=== PATIENT | male | born 1965 | race Caucasian/White ===

== ENCOUNTER 2023-11-16 12:55 | Outpatient (CLI) | payer MEDICARE, SELFPAY ==
--- NOTE | 2023-11-16 13:00 | ECG_ITS ---
Measurements Intervals [place] Rate: 99 P: 17 CO: 145 QRS: -5 QRSD: 97 T: 51 QT: 349 QTc: 449 Interpretive Statements SINUS RHYTHM INCOMPLETE RIGHT BUNDLE BRANCH BLOCK BORDERLINE ST-T WAVE ABNORMALITY- DIFFUSE LEADS BASELINE ARTIFACT- I, II, III, AVR, AVL, AVF, V1-V6 BORDERLINE ECG NO PREVIOUS ECG AVAILABLE FOR COMPARISON Electronically Signed On 11-16-2023 13:49:17 CDT by Andrew Huang D.O.
[2023-11-16 13:24] LABS: Appearance Urine Clear (Clear); Bilirubin Urine Negative (Negative); Blood Urine Negative (Negative); Color Urine Yellow (Yellow); Glucose Urine UA Negative (Negative); Ketones Urine Negative (Negative); Leukocyte Esterase Ur Negative LEU/UL (Negative); Nitrate Urine Negative (Negative); Protein Urine Negative (Negative); Specific Grav Ur 1.013 (1.001-1.035); Urobilinogen Urine 0.2 mg/dL (<2.0); pH Urine 5.5 (5.0-9.0)
[2023-11-16 13:29] LABS: Add Urine Microscopic? NO
[2023-11-16 13:34] LABS: INR 0.9; Prothrombin Time 12.6 Seconds (11.1-14.7)
== END 2023-11-16 12:56 | disposition home or self-care (01) ==
LOC: ANHSURGERY 12:59
PROVIDERS: PCP Physician Assistant Medical; Visit Provider Neurological Surgery
DX: M47.816 Spondylosis without myelopathy or radiculopathy, lumbar region (principal); E11.9 Type 2 diabetes mellitus without complications; E78.5 Hyperlipidemia, unspecified; I10 Essential (primary) hypertension; Z87.891 Personal history of nicotine dependence; Z01.818 Encounter for other preprocedural examination
CPT/HCPCS: 36415; 85610; 85730; 86850; 86900; 86901; 93005

== ENCOUNTER 2023-11-20 01:01 | Day surgery (SDC) | payer MEDICARE, SELFPAY ==
[2023-11-13 15:20] VITALS: BMI 28.3
--- NOTE | 2023-11-13 15:28 | PC.NURSE ---
Report to the Outpatient Waiting Room, entrance under the green pavilion located off [facility], at time 6:00 on date 11/20/23. Planned Procedure Time: 8:00. Time changes happen often and if your time is changed the preop area will call you the afternoon before. - You and your visitor will be asked to self-screen and do not enter if you have any COVID symptoms. - A mask is optional within the hospital at this time. Patients may have clear liquids (water, carbonated beverages, clear teas, apple juice) until 3 hours prior to surgery (5:00) with a maximum of 20 ounces. - No food from midnight until time of surgery Take the following medications with a SIP of water the morning of surgery: SUBOXONE, DULOXETINE, TIZANIDINE IF NEEDED DO NOT STOP ANY OF YOUR OTHER PRESCRIPTION MEDICATIONS PRIOR TO SURGERY ?EXCEPT THE FOLLOWING Medications to discontinue per physician: VITAMINS (B12 AND D3) Date to take last dose: 11/16/23 LAST DOSE OF ASPIRIN 11/12/[address] BRUNSON REGARDING MELOXICAM Please no make-up, nail mauritian, hairspray, perfume, deodorant, or body powder the day of surgery. No jewelry (including any body piercings) or valuables the day of surgery, leave them at home. Please take a shower or bath the night before, or the morning of, surgery with an antibacterial soap. Wear comfortable, loose fitting clothing. - Jewelry must be removed prior to entering the operating room. Rings and piercings that are not removed may be cut off. - The hospital will not accept responsibility for valuables. - Please leave all valuables, including medications, at home the day of surgery. If you are going home after surgery, a licensed national dedicated truck driver must drive you home. - NO public transportation without another adult if you receive anesthesia. - We recommend that an adult stay with you for 24 hours following discharge. - We also recommend that you do not drive, make important decision, drink alcoholic beverages, or take any drugs that were not prescribed by your health care provider for at least 24 hours after your discharge time. Follow any additional instructions given to you from your surgeon. If you or anyone in your household have experienced Covid symptoms in the past week, please notify your surgeon or the nurse liaison at the phone number below for possible testing. Telephone instructions given to PT & - INDIO AND YURI and asked if any additional questions and then verbalized understanding. Patient advised to call surgeon office or pre surgery nurse liaison [phone] if any additional questions.
[2023-11-20] VITALS (20 sets, daily range): BP systolic 104–146; BP diastolic 60–92; PULSE 91–116; RESP 11–18; TEMP 36–37.2; O2SAT 92–99
--- NOTE | ~2023-11-20 | XR_ITS ---
EXAMINATION: XR fluoroscopy no charge DATE: 11/20/2023 10:26 INDICATION: Lumbar fusion. TECHNIQUE: 2 intraoperative fluoroscopic views of the lumbar spine were obtained. I was not present. Fluoroscopy exposure time was 3 seconds. COMPARISON: Lumbar spine radiographs 11/27/2016 FINDINGS: There are changes of anterior and posterior fusion procedures at L4-L5 with interbody devic e and pedicle screws. IMPRESSION: 1. Anterior and posterior fusion procedures at L4-L5. Reviewed, dictated and finalized at location E.
[2023-11-20] MEDS: LACTATED RINGERS 1,000 ML 125 ML IV CONT (07:20)
[2023-11-20 07:22] LABS: Glucose Point of Care 164 mg/dl (65-105)
--- NOTE | 2023-11-20 07:57 | WPDANESEPPF ---
Anes - Initial Pre Proc Eval Procedure: Operation Date: 11/20/23 08:00 Proposed Procedures p L4-5 Posterior Lumbar Interbody Fusion - Faisal Nam MD Date/Time: 11/20/23 07:57 Surgeon: Faisal Nam MD Pre Op Diagnosis: L4-5 spondylosis Patient Data Age: 58 Gender: M Height: 1.63 m Weight: 75.9 kg Last Vital Signs Temp 36.8 C 11/20/23 06:30 Pulse 91 11/20/23 06:30 Resp 16 11/20/23 06:30 BP 123/75 11/20/23 06:30 Pulse Ox 98 11/20/23 06:30 O2 Del Method Room Air 11/20/23 06:30 Allergies Allergy/AdvReac Type Severity Reaction Status Date / Time No Known Allergies Allergy Verified 11/20/23 06:33 Home Medications Medication Instructions Recorded Confirmed Type blood sugar diagnostic #100 ea 06/18/23 10/26/23 Rx meloxicam 7.5 mg tablet See Rx Instructions .Route 08/14/23 11/20/23 Rx .COMPLEX #90 tabs tizanidine 4 mg tablet See Rx Instructions .Route 10/09/23 11/20/23 Rx .COMPLEX #90 tabs metformin 500 mg tablet,extended See Rx Instructions .Route 10/22/23 11/20/23 Rx release 24 hr .COMPLEX #360 tabs atorvastatin 20 mg tablet 20 mg PO QHS #90 tabs 10/26/23 11/20/23 Rx buprenorphine 2 mg-naloxone 0.5 mg 1 tablet sublingual DAILY 10/26/23 11/20/23 History sublingual tablet duloxetine 30 mg capsule,delayed See Rx Instructions .Route 10/26/23 11/20/23 Rx release .COMPLEX #90 caps duloxetine 60 mg capsule,delayed See Rx Instructions .Route 10/26/23 11/20/23 Rx release .COMPLEX #90 caps trazodone 50 mg tablet 50 mg PO QHS PRN Insomnia 10/26/23 11/20/23 History amlodipine 5 mg-benazepril 10 mg See Rx Instructions .Route 11/08/23 11/20/23 Rx capsule .COMPLEX #90 caps aspirin 81 mg capsule 81 mg PO DAILY 11/13/23 11/20/23 History cholecalciferol (vitamin D3) 25 25 mcg PO HS 11/13/23 11/20/23 History mcg (1,000 unit) chewable tablet (Vitamin D3) cyanocobalamin (vitamin B-12) 500 500 mcg PO DAILY 11/13/23 11/20/23 History mcg tablet Laboratory Tests 11/20/23 07:12 POC Capillary Glucose 164 H mg/dl (65-105) Patient hx anesthesia problems: none Family hx anesthesia problems: none Results Review: All pre-operative results and documents have been reviewed as part of the pre-operative evaluation. [facility] Past Medical History Medical History Chronic bilateral low back pain without sciatica Chronic low back pain Diabetes Dyslipidemia HTN (hypertension), benign Lumbar radiculopathy, chronic Other chronic pain Spinal stenosis Spondylosis of cervical region without myelopathy or radiculopathy Vitamin D deficiency Family History Family History Sibling Hypertension Father Family history of Parkinson's disease, Onset Age: 86 Social History Social History Smoking packs per day: 2.5 Smoking cigarettes per day: 50.0 Years smoked: 35 Smoking pack-years: 87.50 Smoking status: Former smoker Tobacco type: cigarettes Second hand tobacco smoke exposure: No Smoking end date: 06/26/23 Alcohol intake: current Alcohol use details: 1/MONTH Substance use: never Substance use type: does not use Do You Feel Safe in your Home?: Yes Lack of Transportation: No Lack of Food: Never True Current Housing: I Have Housing Concerned About Future Housing: No Difficulty Paying Gas/Electric Bills: No Difficulty Paying for Meds: No Currently Unemployed: No Education: High School Diploma/GED Difficulty w/ Childcare or Family Care: No Living arrangements: with family Occupation/Education: retired Gender identity (if verbalized by the patient): Male Spiritual care concerns: No Anes - Eval Final PreProcedure Day of Procedure 11/20/23 07:57 Patient weight: overweight Heart: regular rate and rhythm Lungs: decreased
--- NOTE | 2023-11-20 08:13 | PM.IMHP ---
H&P: HPI History of Present Illness Date/Time: 11/20/23 08:13 Chief Complaint: Back and leg pain Narrative: Marcio Gomez is here today in follow-up of his L4-5 spondylosis and stenosis.? We had previously discussed L4-5 posterior lumbar interbody fusion.? He is a 58-year-old gentleman here today in follow up with a new MRI of his lumbar spine. He has pain in the middle of his back radiating slightly to the right that does not radiate down into either lower extremity or anywhere else. The discomfort in his back is there all the time but waxes and wanes in intensity at random. He has increased pain if he stands and walks that improves but does not completely go away when he sits down and rests. He does not notice any specific or general muscle group weakness in either lower extremities but does notice mild intermittent numbness and tingling down his bilateral legs. He has seen a resin painter in the past and has tried injections but states that the last injection he had was about 9 years ago. He states that the injections he has had in the past may have helped for a few days, maybe 4 days at most, but none of these provided him with any permanent relief/benefit. He has also tried physical therapy in the past without permanent benefit. He is limited and distracted daily by the discomfort in his back to the extent that he wants to have surgery at this point in time. He is not having any new bowel or bladder difficulty or other new constitutional problems at this time. He has been able to quit smoking and is interested in proceeding with the aforementioned operation as he continues to have pain that is limiting in distracting for him on a daily basis. Review of Systems Review of Systems: Review of Systems Const Details: Const All systems reviewed & are unremarkable except as noted in HPI and below Denies chills, Denies fever(s), Denies weakness, Denies weight gain and Denies weight loss Eyes Denies change in vision and Denies diplopia ENT Denies neck pain and Denies disequilibrium Card Denies chest pain and Denies dyspnea Resp Denies cough and Denies dyspnea GI Denies abdominal pain, Denies change in bowel habits, Denies fecal incontinence and Denies vomiting Denies hematuria, Denies oliguria, Denies difficulty urinating, Denies dysuria, Denies urinary frequency, Denies urinary hesitancy, Denies urinary incontinence and Denies urinary urgency Musc Reports as per HPI, Reports back pain, Denies muscle weakness, Denies neck pain, Reports numbness and Denies stiffness Skin/ Breast Reports system reviewed and no additional complaints, except as documented Neuro Reports as per HPI, Denies burning sensations, Denies focal weakness, Reports numbness, Denies Other visual disturbances, Reports radicular pain, Reports paresthesias, Denies disequilibrium and Denies weakness Psych Reports no additional complaints, Denies depression and Denies hopelessness Endo Reports no additional complaints and Denies polyuria Kleber/ Lymph Reports no additional complaints Aller/ Immun Reports no additional complaints PMFSH Past Medical History Medical History Chronic bilateral low back pain without sciatica Chronic low back pain Diabetes Dyslipidemia HTN (hypertension), benign Lumbar radiculopathy, chronic Other chronic pain Spinal stenosis Spondylosis of cervical region without myelopathy or radiculopathy Vitamin D deficiency Family History Family History Sibling Hypertension Father Family history of Parkinson's disease, Onset Age: 86 Social History Social History Smoking packs per day: 2.5 Smoking cigarettes per day: 50.0 Years smoked: 35 Smoking pack-years: 87.50 Smoking status: Former smoker Tobacco type: cigarettes Second hand tobacco smo
--- NOTE | 2023-11-20 08:16 | WPDHPUPDATE1 ---
History and Physical Update Update Date/Time: 11/20/23 08:16 History and Physical has been reviewed, including an updated exam of the patient. There are NO changes in the patient's condition. Risks, benefits, and alternatives have been discussed and questions answered. Patient agrees to proceed with procedure.
[2023-11-20] MEDS: ceFAZolin 2 GM/D5W 50 ML 2 GM/50 ML BAG IVPB (08:17)
[2023-11-20] MEDS: LIDO 1%/EPINEPHRINE 1:100,000 50 ML VIAL 10 ML INFILTRATE (09:05)
--- NOTE | 2023-11-20 10:47 | W.PM.PROC2 ---
Procedure Note - Detailed Date of Procedure 11/20/23 Pre-op Diagnosis L4-5 spondylosis Post-op Diagnosis Same Procedure Performed L4-5 complete laminectomy bilateral facetectomy, L4-5 complete diskectomy and interbody arthrodesis utilizing titanium interbody device and local autograft, L4-5 pedicle screw instrumentation Surgeon Faisal Nam MD Anesthesia General Description of Procedure patient was brought to the operating room in the supine position, was sedated, intubated placed under general anesthesia in routine fashion. He was then turned into the prone position on Antelmo frame. The operation was backed examined, marked for incision, prepped and draped in routine sterile fashion. Incision was marked over the L4-5 spinous processes in the midline. This area was injected with 0.5% lidocaine with [id number] epinephrine. Intravenous antibiotics given prior to incision. Incision was made with a 10 blade scalpel down to the lumbodorsal fascia. A subperiosteal dissection of the muscle soft tissue within spinous process and lamina was performed with a subperiosteal elevator and Bovie cautery. A verifying x-rays obtained to verify the level of operation. The L4 spinous process was removed with a Inna rongeur. Kerrison punches, curved curette and Yayoell rongeur were used to remove the lamina in the midline at the soft contents of the canal were encountered. A Midas David drill was used to resect the pars bilaterally. The inferior articular process and facet of L4 could then be removed bilaterally. These +spinous process were stripped free of soft tissue and morselized for later use as interbody autograft. Kerrison punches and curved curettes were used to define plane with the dura and removed bone and ligament flush with the pedicle and through the foramina widely decompressing the exiting nerve roots. With the thecal sac retracted and protected the disc spaces under bilaterally using 11 blade scalpel. Script is a very sizes, curettes appears configurations, pituitary rongeur and a rasp were used to remove as much cartilaginous endplate and disc material as possible down to bleeding cortical flat surfaces on the closing bones. The disc space was incised and a 10 mm interbody devices were chosen and filled with local autograft bone. The disc space was likewise filled with local autograft bone medially and anteriorly. The interbody devices were then placed with 2-3 mm countersink within the disc space bilaterally. Pedicle screw instrumentation was then performed by observing and palpating the pedicle a hole was made and severe articular process above the pedicle using Midas David drill. The pedicle was then cannulated with pedicle probe, checked for cannulated with a ball probe, tapped with a 5.5 mm tap and a 6.5 x 50 mm screw was placed in each pedicle on each side. 35 mm rods were placed in screw heads her side and secured in position using the caps that purpose. These were definitively time with the torque and anti torque device. A verifying x-rays obtained to verify the position of the instrumentation which was confirmed. The wound was copiously irrigated with bacitracin irrigation all bleeding stopped with bipolar and Bovie cautery and Gelfoam thrombin powder. in a medium Hemovac drain was left in the subfascial position. After the inferior right of the incision. The wound was then closed in layered fashion with 2-0 Vicryl interrupted sutures in the lumbodorsal fascia and Antonio's layer. 3-0 Vicryl buried interrupted sutures were placed in the dermis and skin was closed with a running 4-0 Monocryl subcuticular stitch and dressed with Dermabond. The patient was allowed to come out from general anesthesia in the operating room was taken to recovery room stable condition. There were no immediate complications of this operation. All counts were reported correct in the case. Blood loss was 150 cc. The patient was neurologically at
--- NOTE | 2023-11-20 10:51 | SUR.OPER ---
100mL clear yellow urine drained from catheter intraop
[2023-11-20] MEDS: LACTATED RINGERS 1,000 ML 30 ML IV CONT (10:55)
[2023-11-20 11:04] LABS: Glucose Point of Care 229 mg/dl (65-105)
[2023-11-20] MEDS: fentaNYL CITRATE INJ (*CRX) 100 MCG/2 ML VIAL 25 MCG IV PUSH ×8 (11:20→11:42)
[2023-11-20] MEDS: HYDROmorphone HCL INJ (*CRX) 1 MG/ML SYR IV PUSH ×9 (12:02→23:54)
--- NOTE | 2023-11-20 14:18 | ADMGEN ---
This patient, Marcio Gomez, was admitted to [facility] Surg Room 309-01. Patient/family oriented to hospital policies and general routines including ID bracelet, bed and alarms, visiting hours, pain management, procedures, bathroom and other care routines, personal items, smoking policy, room service/diet, and visiting hours. Information on how to activate the Rapid Response Team has been discussed. Patient/Family are encouraged to report perceived risks to care and to ask questions if they do not understand what they are told or what they should do.
[2023-11-20] MEDS: KCL 20 MEQ/D5/0.45% SOD CHL 1,000 ML 100 ML IV CONT (16:11)
[2023-11-20] MEDS: oxyCODONE/ACETAMINOPHEN (*CRX) 10-325 MG TABLET 1 TAB PO (16:12)
[2023-11-20] MEDS: ceFAZolin 1 GM/NS 50 ML 1 GM/50 ML BAG IVPB ×2 (16:12→20:59)
[2023-11-20] MEDS: metFORMIN HCL XR 500 MG TAB.SR.24H 1000 MG BY MOUTH (16:20)
[2023-11-20 16:33] LABS: Glucose Point of Care 240 mg/dl (65-105)
[2023-11-20] MEDS: diazePAM (*CRX) 5 MG TABLET PO (18:29)
[2023-11-20 20:45] LABS: Glucose Point of Care 398 mg/dl (65-105)
[2023-11-20] MEDS: DOCUSATE SODIUM 100 MG CAPSULE PO (20:55)
[2023-11-20] MEDS: ATORVASTATIN 20 MG TABLET PO (20:55)
[2023-11-20] MEDS: traZODone HCL 50 MG TABLET PO (20:55)
[2023-11-20] MEDS: CHOLECALCIFEROL 1,000 UNITS TABLET 1000 UNITS PO (20:56)
[2023-11-20] MEDS: INSULIN ASPART (*BKC) 100 UNITS/ML SUB-Q (20:56)
[2023-11-21] MEDS: HYDROmorphone HCL INJ (*CRX) 1 MG/ML SYR IV PUSH ×3 (02:47→09:00)
[2023-11-21 04:50] VITALS: BP 161/91; PULSE 86; RESP 16; TEMP 36.3; O2SAT 94
[2023-11-21] MEDS: ceFAZolin 1 GM/NS 50 ML 1 GM/50 ML BAG IVPB ×2 (05:00→14:16)
[2023-11-21] MEDS: oxyCODONE/ACETAMINOPHEN (*CRX) 10-325 MG TABLET 1 TAB PO ×2 (06:52→12:01)
[2023-11-21 08:02] LABS: Glucose Point of Care 195 mg/dl (65-105)
[2023-11-21 08:49] LABS: Hematocrit 38.5 % (42.0-52.0); Hemoglobin 12.5 g/dL (14.0-18.0)
[2023-11-21 09:02] VITALS: BP 167/97; PULSE 83; RESP 20; TEMP 36.2; O2SAT 99
[2023-11-21] MEDS: metFORMIN HCL XR 500 MG TAB.SR.24H 1000 MG BY MOUTH ×2 (09:02→16:39)
[2023-11-21] MEDS: DOCUSATE SODIUM 100 MG CAPSULE PO (09:02)
[2023-11-21] MEDS: amLODIPine BESYLATE 5 MG TABLET PO (09:02)
[2023-11-21] MEDS: CYANOCOBALAMIN 500 MCG TABLET PO (09:02)
[2023-11-21] MEDS: lisinopriL 10 MG TABLET PO (09:02)
[2023-11-21] MEDS: DULoxetine HCL 30 MG CAPSULE.DR BY MOUTH (09:02)
[2023-11-21] MEDS: DULoxetine HCL 60 MG CAPSULE.DR BY MOUTH (09:02)
[2023-11-21 11:39] LABS: Glucose Point of Care 207 mg/dl (65-105)
--- NOTE | 2023-11-21 12:21 | WPDNEUROSGPN ---
Progress Note: A&P Assessment and Plan (1) Status post lumbar spinal arthrodesis: Code(s): Z98.1 - Arthrodesis status Status: Acute Plan -Remove catheter -Monitor HV output this afternoon -Stop IV dilaudid as he would like to go home today if he can -Increase oxycodone to 15mg q4 hours -Possible discharge this evening if drain output remains <100cc this shift and pain is controlled without IV medications Subjective Date/time seen: 11/21/23 12:21 Interval history: Some difficulty with pain control; patient is wanting frequent dilaudid. Pain is mostly in the lower back. He denies any pain or paresthesias in the legs which is a big improvement compared to before surgery. He ambulated with therapy. catheter is still in Review of Systems Review of Systems: All systems reviewed & are unremarkable except as noted in HPI and below Exam Narrative: AOx4 Incision c/d/i Full strength in lower extremities Sensation intact to light touch HV 310cc out since surgery, only 35cc since 7:30 this AM Objective Data Vital Signs Vital Signs: Vital Signs - 24 hr 11/20/23 12:25 11/20/23 12:40 11/20/23 12:54 Temperature Pulse Rate 100 98 97 Respiratory Rate 16 15 15 Blood Pressure 115/67 110/61 106/72 Pulse Oximetry 97 95 93 Oxygen Delivery Nasal Cannula Nasal Cannula Nasal Cannula Oxygen Flow Rate 2 2 2 11/20/23 13:09 11/20/23 13:26 11/20/23 13:35 Temperature Pulse Rate 104 H 103 H 100 Respiratory Rate 14 12 11 L Blood Pressure 138/90 131/84 108/61 Pulse Oximetry 98 98 96 Oxygen Delivery Nasal Cannula Nasal Cannula Nasal Cannula Oxygen Flow Rate 2 2 2 11/20/23 13:50 11/20/23 15:39 11/20/23 16:02 Temperature 97.3 F L Pulse Rate 100 103 H Respiratory Rate 15 18 Blood Pressure 121/81 140/60 Pulse Oximetry 96 99 Oxygen Delivery Nasal Cannula Room Air Oxygen Flow Rate 2 11/20/23 20:23 11/20/23 20:00 11/20/23 23:54 Temperature 97.6 F 98.3 F Pulse Rate 107 H 96 Respiratory Rate 16 16 Blood Pressure 134/72 137/92 H Pulse Oximetry 98 96 Oxygen Delivery Room Air Oxygen Flow Rate 11/21/23 04:50 11/21/23 09:02 Temperature 97.4 F L 97.1 F L Pulse Rate 86 83 Respiratory Rate 16 20 Blood Pressure 161/91 H 167/97 H Pulse Oximetry 94 99 Oxygen Delivery Oxygen Flow Rate Intake/Output Intake/Output: Intake & Output 11/18/23 11/19/23 11/20/23 11/21/23 23:59 23:59 23:59 23:59 Intake Total 3071.7 286 Output Total 350 590 Balance 2721.7 -304 Meds/Results Medications: Active Medications Generic Name Dose Route Start Last Admin Trade Name Freq PRN Reason Stop Dose Admin Al Hydrox/Mg Hydrox/Simethicone 20 ml 11/20/23 14:02 Mag Hydrox/Al Hydrox/Simeth 30 Ml Udc PO Q4H PRN Indigestion/Heartburn Amlodipine Besylate 5 mg 11/21/23 09:00 11/21/23 09:02 Amlodipine Besylate 5 Mg Tablet PO 5 mg QAM PATY Administration Atorvastatin Calcium 20 mg 11/20/23 21:00 11/20/23 20:55 Atorvastatin 20 Mg Tablet PO 20 mg QHS PATY Administration Bisacodyl 10 mg 11/20/23 14:02 Bisacodyl 10 Mg Suppository RECTAL DAILY PRN Constipation Cyanocobalamin 500 mcg 11/21/23 09:00 11/21/23 09:02 Cyanocobalamin 500 Mcg Tablet PO 500 mcg DAILY PATY Administration Dextrose 12.5 gm 11/20/23 17:31 Dextrose 50% 25 Gm/50 Ml Syringe IV PUSH PRN PRN Hypoglycemia Protocol Diazepam 5 mg 11/20/23 14:31 11/20/23 18:29 Diazepam (*Crx) 5 Mg Tablet PO 5 mg Q6H PRN Administration pain/spasms Docusate Sodium 100 mg 11/20/23 21:00 11/21/23 09:02 Docusate Sodium 100 Mg Capsule PO 100 mg Q12HR PATY Administration Duloxetine HCl 30 mg 11/21/23 09:00 11/21/23 09:02 Duloxetine Hcl 30 Mg Capsule.Dr BY MOUTH 30 mg DAILY PATY Administration Duloxetine HCl 60 mg 11/21/23 09:00 11/21/23 09:02 Duloxetine Hcl 60 Mg Capsule.Dr BY MOUTH 60 mg DAILY PATY Administ
[2023-11-21 13:02] VITALS: BP 120/83; PULSE 118; RESP 20; TEMP 36.1; O2SAT 98
[2023-11-21] MEDS: diazePAM (*CRX) 5 MG TABLET PO (13:32)
[2023-11-21] MEDS: ACETAMINOPHEN 500 MG TABLET 1000 MG PO ×2 (13:32→16:39)
--- NOTE | 2023-11-21 15:16 | WPDANESPN ---
Anes - Prog Note Post-Op Date/Time: 11/21/23 15:16 Cardiovascular status: normal Respiratory status: normal Airway patency: baseline Mental status: baseline Post-Op hydration status: normal Vital Signs: Last Vital Signs Temp 36.1 C L 11/21/23 13:02 Pulse 118 H 11/21/23 13:02 Resp 20 11/21/23 13:02 BP 120/83 11/21/23 13:02 Pulse Ox 98 11/21/23 13:02 O2 Del Method Room Air 11/20/23 20:00 O2 Flow Rate 2 11/20/23 13:50 Pain Score (VAS): 0/10 I/O: Intake & Output 11/20/23 11/21/23 11/21/23 23:59 07:59 15:59 Intake Total 821.7 50 236 Output Total 170 90 800 Balance 651.7 -40 -564 Laboratory Tests 11/21/23 08:00 11/20/23 11/20/23 11/21/23 16:30 20:24 07:51 Hgb Hct POC Capillary Glucose 240 H 398 H 195 H 11/21/23 11/21/23 08:00 11:32 Hgb 12.5 L Hct 38.5 L POC Capillary Glucose 207 H Post-procedural complaints: none Patient Feedback: Patient satisfied with anesthetic care.
[2023-11-21 16:34] LABS: Glucose Point of Care 147 mg/dl (65-105)
[2023-11-21] MEDS: oxyCODONE HCL (*CRX) 5 MG TAB IR 15 MG PO (16:39)
[2023-11-21 17:02] VITALS: BP 99/70; PULSE 95; RESP 20; TEMP 36.1; O2SAT 94
--- NOTE | 2023-11-21 18:40 | PC.NURSE ---
This pt admitted to floor 11/19 from PACU s/p L4-L5 LIBF. Pt pain was out of control despite all of PACU pain medications. This RN called provider to discuss what medications to give as pt takes suboxone at home. Provider gave telephone orders, read back by RN and then placed. RN requested accuchecks, hypoglycemia protocol, and SSI for pt; again orders received. Hemovac drain put out 170mls in first four hours to floor. Again, provider notified; output ok per provider. Pt continued to need IVP meds through the night. Tammy by to see pt today. Pain still uncontrolled without IVP dilaudid. PO oxi increased. Pt able to tolerate pain with activity using 1000mg tylenol q6hr po scheduled, as well as 10-15mg oxicodone. Drain removed. Total of 85mls sanguinous output this shift. Pt catheter removed and pt voided prior to d/c. Pt sent home with an extra tegaderm/gauze to cover drain hole sent with pt. Pt educated to closely follow up with family doctor, neurosurgery and prescribing provider to develop plan to transition back over to suboxone. encouraged to garbage pick up worker some narcan. and pt educated in depth on pain management program. Both are agreeable. Pt given our 3 MS phone number for any discharge instruction questions, as well as neurosurgery office and emergency numbers.
== END 2023-11-21 18:40 | disposition home or self-care (01) ==
LOC: ANHSURGERY 06:10 → ANH3MEDSUR 14:06
PROVIDERS: PCP Physician Assistant Medical; Visit Provider Neurological Surgery
PROC: (CPT 22612; principal; 2023-11-20 08:00)
DX: M47.816 Spondylosis without myelopathy or radiculopathy, lumbar region (principal); M48.061 Spinal stenosis, lumbar region without neurogenic claudication; I10 Essential (primary) hypertension; E11.9 Type 2 diabetes mellitus without complications; E78.5 Hyperlipidemia, unspecified; E55.9 Vitamin D deficiency, unspecified; Z87.891 Personal history of nicotine dependence; Z79.84 Long term (current) use of oral hypoglycemic drugs
CPT/HCPCS: 22630; 22853; 20936; 22840; 36415; 72133; 80053; 82948; 83605; 85014; 85018; 85025; 85610; 85730; 86850; 86900; 86901; 93005; 96374; 96375; 97116; 97161; 97165; 97530; 97535; 99199; 99283; 99284; A9270; C1713; J0330; J0690; J1100; J1170; J1815; J2250; J2270; J2371; J2405; J2704; J3010; J3480; J7120; Q9967

== ENCOUNTER 2023-11-21 22:43 | Emergency (ER) | payer MEDICARE, SELFPAY ==
[2023-11-21 22:44] VITALS: BP 92/66; PULSE 89; RESP 19; TEMP 36.7; O2SAT 95
--- NOTE | 2023-11-21 23:58 | ED.BACK ---
HPI - Back Pain/Injury General Chief Complaint: Back Pain/Injury Stated Complaint: leg numbness Time Seen by Provider: 11/21/23 23:07 History of Present Illness HPI Narrative: Patient is a 58-year-old male who presents to the emergency department this evening complaining of lower back pain. Patient states that he was recently discharged from our facility earlier this evening around 6:00 p.m. after he had a spinal fusion of his lumbar spine which was performed yesterday. Patient states that when he went home he was doing well but then he had this sudden onset of lower back pain which felt like severe muscle spasm. Patient states that the pain was so severe it brought her back to the emergency department. As soon as he arrived to the ED, patient felt the need to urinate and after emptying his bladder he states that the pain subsided. Patient states that he was discharged home with script for oxycodone 5, however, due to some confusion regarding the script, he was not able to fill it out and once confusion was sorted out, the pharmacy was closed so he was not able to machine pecan picker his script before they closed and he is concerned that he will have pain overnight at home until he can machine pecan picker a script in the morning. He stated that when the sharp muscle spasm pain started it did radiate down his bilateral legs but is currently denying any bilateral lower extremity weakness, numbness and/or tingling. Patient is able to ambulate and walk and denies any bowel or bladder incontinence. There are no other modifying, alleviating, or precipitating factors at this time. Related Data Home Medications Medication Instructions Recorded Confirmed buprenorphine 2 mg-naloxone 0.5 mg 1 tablet sublingual DAILY 10/26/23 11/20/23 sublingual tablet trazodone 50 mg tablet 50 mg PO QHS PRN Insomnia 10/26/23 11/20/23 aspirin 81 mg capsule 81 mg PO DAILY 11/13/23 11/20/23 cholecalciferol (vitamin D3) 25 25 mcg PO HS 11/13/23 11/20/23 mcg (1,000 unit) chewable tablet (Vitamin D3) cyanocobalamin (vitamin B-12) 500 500 mcg PO DAILY 11/13/23 11/20/23 mcg tablet amlodipine 5 mg-benazepril 10 mg 1 cap PO DAILY 11/20/23 11/20/23 capsule Allergies Allergy/AdvReac Type Severity Reaction Status Date / Time No Known Allergies Allergy Verified 11/21/23 22:51 Review of Systems Review of Systems: All systems are reviewed and are negative unless stated otherwise in the HPI. [facility] Past Medical History Medical History Chronic bilateral low back pain without sciatica Chronic low back pain Diabetes Dyslipidemia HTN (hypertension), benign Lumbar radiculopathy, chronic Other chronic pain Spinal stenosis Spondylosis of cervical region without myelopathy or radiculopathy Vitamin D deficiency Family History Family History Sibling Hypertension Father Family history of Parkinson's disease, Onset Age: 86 Social History Social History Smoking packs per day: 2.5 Smoking cigarettes per day: 50.0 Years smoked: 35 Smoking pack-years: 87.50 Smoking status: Former smoker Tobacco type: cigarettes Second hand tobacco smoke exposure: No Smoking end date: 06/26/23 Alcohol intake: current Drinks per week: 2 Alcohol use details: 1/MONTH Substance use: never Substance use type: does not use Do You Feel Safe in your Home?: Yes Lack of Transportation: No Lack of Food: Never True Current Housing: I Have Housing Concerned About Future Housing: No Difficulty Paying Gas/Electric Bills: No Difficulty Paying for Meds: No Currently Unemployed: No Education: High School Diploma/GED Difficulty w/ Childcare or Family Care: No Living arrangements: with family Occupation/Education: retired Gender identity (if verbalized by the patient): Male Spiritua
[2023-11-22] MEDS: HYDROcodone/acetaminophen (*CRX) 7.5-325 MG TABLET 1 TAB PO ×2 (00:03→01:26)
[2023-11-22 01:31] VITALS: BP 148/78; PULSE 86; RESP 15; O2SAT 100
== END 2023-11-22 01:44 | disposition home or self-care (01) ==
PROVIDERS: Emergency Provider Emergency Medicine; PCP Physician Assistant Medical
DX: M54.50 Low back pain, unspecified (principal); Z98.1 Arthrodesis status; I10 Essential (primary) hypertension; E78.5 Hyperlipidemia, unspecified; E11.9 Type 2 diabetes mellitus without complications; E55.9 Vitamin D deficiency, unspecified; Z87.891 Personal history of nicotine dependence; Z79.82 Long term (current) use of aspirin; Z79.84 Long term (current) use of oral hypoglycemic drugs
CPT/HCPCS: 99283; A9270

== ENCOUNTER 2023-11-22 21:46 | Emergency (ER) | payer MEDICARE, SELFPAY ==
--- NOTE | ~2023-11-22 | CT_ITS ---
EXAMINATION: CT lumbar spine wo/w con DATE: 11/23/2023 01:38 INDICATION: Low back pain. TECHNIQUE: Computed tomography (CT) of the lumbar spine was performed without and with 100 mL Omnipaq ue 350 intravenous contrast. Automated exposure control and iterative reconstruction technique were e mployed. The dose-length product was 995.06 mGy-cm. COMPARISON: Lumbar spine MRI 07/16/2013 FINDINGS: There is a 3 mm stone in left kidney. Partially visualized are 2 stones in right kidney brain suring up to at least 4 mm. There is 5 degrees levocurvature of lumbar spine. There are changes of an terior and posterior fusion procedures at L4-L5 with interbody devices and pedicle screws. There are changes of L4 laminectomy. There is mild chronic anterior wedging of T10 and T11 vertebral bodies. Th ere is mildly decreased disc height at T9-T10, T10-T11, T11-T12, T12-L1, and L2-L3 and moderately dec reased disc height at L3-L4. The following disc levels are specifically discussed: L1-L2: The disc is bulging. There is moderate bilateral facet joint osteoarthritis. There is mild gopal ateral neural foraminal stenosis. There is mild central canal stenosis. L2-L3: The disc is bulging. There is mild bilateral facet joint osteoarthritis. There is mild bilater al neural foraminal stenosis. There is mild central canal stenosis. L3-L4: The disc is bulging. There is severe right and moderate left facet joint osteoarthritis. There is mild right and moderate left neural foraminal stenosis. There is mild central canal stenosis. L4-L5: There is no facet joint hypertrophy. There is mild right neural foraminal stenosis with rfid developer ior decompression. There is epidural soft tissue swelling with foci of epidural gas with mass effect on the thecal sac. L5-S1: The disc is bulging. There is severe bilateral facet joint osteoarthritis. There is mild bilat eral neural foraminal stenosis. There is mild central canal stenosis. IMPRESSION: 1. Recent anterior and posterior fusion procedures at L4-L5 with soft tissue swelling with mass effec t on the thecal sac. 2. Moderate lumbar spondylosis. Reviewed, dictated and finalized at location A. IMPRESSION: 1. Recent anterior and posterior fusion procedures at L4-L5 with soft tissue sw elling with mass effect on the thecal sac. 2. Moderate lumbar spondylosis.
[2023-11-22 21:47] VITALS: TEMP 36.7
[2023-11-22 21:52] VITALS: PULSE 111; RESP 14; O2SAT 98
[2023-11-22 21:53] VITALS: BP 147/87
[2023-11-22 22:57] VITALS: BP 137/71; PULSE 109; RESP 16; O2SAT 98
[2023-11-22 23:20] VITALS: BP 135/83; PULSE 100; RESP 15; O2SAT 98
[2023-11-23 00:59] LABS: Basophils Percent Auto 0.3 % (0.2-1.2); Eosinophils Percent Auto 0.3 % (0-4.4); Hematocrit 34.8 % (42.0-52.0); Hemoglobin 11.6 g/dL (14.0-18.0); Immature Granulocyte Absolute 0.03 K/mm3 (0.00-0.031); Immature Granulocyte Percent A 0.3 % (0-0.5); Lymphocytes Absolute Auto 3.07 K/mm3 (0.9-3.2); Lymphocytes Percent Auto 28.8 % (18.3-44.2); Mean Corpuscular HGB Conc 33.3 g/dl (32-36); Mean Corpuscular Hemoglobin 29.7 pg (26-34); Mean Corpuscular Volume 89.2 fl (80-100); Mean Platelet Volume 9.3 fl (7.4-10.4); Monocytes Absolute Auto 0.9 K/mm3 (0.1-0.6); Monocytes Percent Auto 8.4 % (2.6-8.5); Neutrophils Absolute Auto 6.6 K/mm3 (1.3-6.7); Neutrophils Percent Auto 61.9 % (45.5-73.1); Platelet Count Result 225 k/mm3 (150-375); Red Cell Distribution Width 13.2 % (11.5-14.5); White Blood Count 10.7 K/mm3 (4.5-10.0)
[2023-11-23 01:08] LABS: Lactic Acid Reflex 1.6 mmol/L (0.7-2.0)
[2023-11-23 01:09] LABS: Alanine Aminotransferase 24 U/L (6-50); Albumin Level 4.5 g/dL (3.5-5.1); Alkaline Phosphatase 58 U/L (38-126); Anion Gap 10 mmol/L (4-12); Aspartate Amino Transferase 32 U/L (17-59); Bilirubin,Total 0.8 mg/dL (0.2-1.3); Blood Urea Nitrogen 13 mg/dL (9-20); Calcium 9.7 mg/dL (8.4-10.2); Carbon Dioxide 27 mmol/L (22-30); Chloride 95 mmol/L (98-107); Estimated CRCL calculation 75 ml/min; Estimated Glomerular Filt Rate > 60; Glucose 174 mg/dL (65-110); Potassium 4.4 mmol/L (3.4-5.0); Sodium 132 mmol/L (137-145)
--- NOTE | 2023-11-23 01:27 | ED.GENADULT ---
HPI - General Adult General Chief complaint: Recheck/Abnormal Lab/Rx Stated complaint: POST OP BACK PAIN Time Seen by Provider: 11/23/23 01:26 History of Present Illness HPI narrative: Patient is a 58-year-old male who presents to the emergency department this evening complaining of lower back pain. Patient recently had a lumbar fusion performed at our facility and was discharged home on Oxy to take as needed for pain. Patient was instructed when he was discharged not to continue taking his Suboxone as taking these 2 medications together may precipitate withdrawal and block opiate receptors which could alter the pain response doxy. Patient states that he did call his doctor after he was being discharged and they told him that he can not continue to take his Suboxone as long as he takes a quarter of the original dose. Patient was provided with his discharge instruction after his surgery strictly stating that he should not be taking these 2 medications together. Patient states that today the pain has been severe and his Oxy pills were not improving his pain. He denies any bowel or bladder incontinence and denies any lower extremity weakness. Patient denies any fevers or chills, nausea or vomiting, chest pain or shortness of breath. There are no other modifying, alleviating, or precipitating factors at this time. Related Data Home Medications Medication Instructions Recorded Confirmed buprenorphine 2 mg-naloxone 0.5 mg 1 tablet sublingual DAILY 10/26/23 11/20/23 sublingual tablet trazodone 50 mg tablet 50 mg PO QHS PRN Insomnia 10/26/23 11/20/23 aspirin 81 mg capsule 81 mg PO DAILY 11/13/23 11/20/23 cholecalciferol (vitamin D3) 25 25 mcg PO HS 11/13/23 11/20/23 mcg (1,000 unit) chewable tablet (Vitamin D3) cyanocobalamin (vitamin B-12) 500 500 mcg PO DAILY 11/13/23 11/20/23 mcg tablet amlodipine 5 mg-benazepril 10 mg 1 cap PO DAILY 11/20/23 11/20/23 capsule Allergies Allergy/AdvReac Type Severity Reaction Status Date / Time No Known Allergies Allergy Verified 11/22/23 21:51 Review of Systems Review of Systems: All systems are reviewed and are negative unless stated otherwise in the HPI. [facility] Past Medical History Medical History Chronic bilateral low back pain without sciatica Chronic low back pain Diabetes Dyslipidemia HTN (hypertension), benign Lumbar radiculopathy, chronic Other chronic pain Spinal stenosis Spondylosis of cervical region without myelopathy or radiculopathy Vitamin D deficiency Family History Family History Sibling Hypertension Father Family history of Parkinson's disease, Onset Age: 86 Social History Social History Smoking packs per day: 2.5 Smoking cigarettes per day: 50.0 Years smoked: 35 Smoking pack-years: 87.50 Smoking status: Former smoker Tobacco type: cigarettes Second hand tobacco smoke exposure: No Smoking end date: 06/26/23 Alcohol intake: current Drinks per week: 2 Alcohol use details: 1/MONTH Substance use: never Substance use type: does not use Do You Feel Safe in your Home?: Yes Lack of Transportation: No Lack of Food: Never True Current Housing: I Have Housing Concerned About Future Housing: No Difficulty Paying Gas/Electric Bills: No Difficulty Paying for Meds: No Currently Unemployed: No Education: High School Diploma/GED Difficulty w/ Childcare or Family Care: No Living arrangements: with family Occupation/Education: retired Gender identity (if verbalized by the patient): Male Spiritual care concerns: No Exam Narrative: General: Alert, awake, afebrile, in no acute distress. HEENT: PERRL, no rhinorrhea, no post nasal drip, oropharynx clear. Neck: Trachea midline, no JVD, no lymphadenopathy. Cardiovascular: Regul
[2023-11-23] MEDS: MORPHINE SULFATE (*CRX) 4 MG/ML INJ IV PUSH (01:38)
[2023-11-23] MEDS: ONDANSETRON INJ 4 MG/2 ML VIAL IV PUSH (01:39)
[2023-11-23 01:45] VITALS: BP 155/94; PULSE 115; RESP 16; O2SAT 94
[2023-11-23] MEDS: HYDROmorphone HCL INJ (*CRX) 1 MG/ML SYR IV PUSH (02:51)
[2023-11-23 03:15] VITALS: BP 156/83; PULSE 108; RESP 17; O2SAT 94
[2023-11-23 04:40] VITALS: BP 135/80; PULSE 108; RESP 14; O2SAT 95
== END 2023-11-23 04:40 | disposition home or self-care (01) ==
PROVIDERS: Emergency Provider Emergency Medicine; PCP Physician Assistant Medical
DX: M54.50 Low back pain, unspecified (principal); Z98.1 Arthrodesis status; I10 Essential (primary) hypertension; E11.9 Type 2 diabetes mellitus without complications; E78.5 Hyperlipidemia, unspecified; E55.9 Vitamin D deficiency, unspecified; Z87.891 Personal history of nicotine dependence; Z79.82 Long term (current) use of aspirin; M47.816 Spondylosis without myelopathy or radiculopathy, lumbar region; Z79.84 Long term (current) use of oral hypoglycemic drugs
CPT/HCPCS: 36415; 72133; 80053; 83605; 85025; 96374; 96375; 99284; J1170; J2270; J2405; Q9967

== ENCOUNTER 2023-11-26 11:58 | Outpatient (CLI) | payer MEDICARE, SELFPAY ==
--- NOTE | ~2023-11-26 | US_ITS ---
EXAMINATION: US venous doppler LE RT DATE: 11/26/2023 12:57 INDICATION: Right lower limb pain. TECHNIQUE: Grayscale ultrasound images without and with compression and Doppler ultrasound images of the right lower extremity veins were obtained. COMPARISON: None. FINDINGS: The visualized portions of right common femoral vein, profunda (deep) femoral vein, femoral vein, pop liteal vein, peroneal veins, posterior tibial veins, and greater saphenous vein outflow are patent. IMPRESSION: 1. No deep venous thrombosis. Reviewed, dictated and finalized at location A.
== END 2023-11-26 11:59 | disposition home or self-care (01) ==
LOC: ANHIMG 11:59
PROVIDERS: PCP Physician Assistant Medical; Visit Provider Physician Assistant
DX: I82.401 Acute embolism and thrombosis of unspecified deep veins of right lower extremity (principal); I82.90 Acute embolism and thrombosis of unspecified vein
CPT/HCPCS: 93971

== ENCOUNTER 2023-12-31 16:15 | Outpatient (CLI) | payer MEDICARE, SELFPAY ==
--- NOTE | ~2023-12-31 | XR_ITS ---
EXAMINATION: XR lumbar spine 2-3V DATE: 12/31/2023 16:34 INDICATION: Spinal stenosis, lumbar region without neurogenic claudication. TECHNIQUE: 3 views of lumbar spine were obtained. COMPARISON: Lumbar spine radiographs 11/27/2016 FINDINGS: There is 6 degrees dextrocurvature of thoracolumbar spine. There are changes of anterior an d posterior fusion procedures at L4-L5 with interbody devices and pedicle screws. Vertebral body heig hts are normal. There is mildly decreased disc height at L2-L3 and L3-L4. There is multilevel facet j oint osteoarthritis, severe in lower lumbar spine. IMPRESSION: 1. Mild lumbar spondylosis. 2. Anterior and posterior fusion procedures at L4-L5. Reviewed, dictated and finalized at location A.
== END 2023-12-31 16:16 | disposition home or self-care (01) ==
LOC: ANHIMG 16:16
PROVIDERS: PCP Physician Assistant Medical; Visit Provider Neurological Surgery
DX: M48.061 Spinal stenosis, lumbar region without neurogenic claudication (principal); M47.896 Other spondylosis, lumbar region; Z98.1 Arthrodesis status
CPT/HCPCS: 72100

== ENCOUNTER 2024-05-20 13:12 | Outpatient (CLI) | payer MEDICARE, SELFPAY ==
--- NOTE | ~2024-05-20 | XR_ITS ---
Lumbosacral Spine: AP and lateral views Clinical History: Pain COMPARISON: 12/31/2023 Findings: The normal lordotic curve is maintained. No acute fracture or subluxation. Stable posterior and interbody fusion from L4 to L5. Stable facet joint arthropathy. The intervertebral disc spaces a re preserved. The sacroiliac joints are normally outlined. Impression: No acute abnormality. Stable post fusion changes, as above. Reviewed, dictated and finalized at location . Impression: No acute abnormality. Stable post fusion changes, as above.
== END 2024-05-20 13:13 | disposition home or self-care (01) ==
LOC: ANHIMG 13:16
PROVIDERS: PCP Physician Assistant Medical; Visit Provider Neurological Surgery
DX: M54.9 Dorsalgia, unspecified (principal); G89.29 Other chronic pain; Z98.1 Arthrodesis status
CPT/HCPCS: 72100

== ENCOUNTER 2025-01-28 14:22 | Outpatient (CLI) | payer MEDICARE, SELFPAY ==
--- NOTE | ~2025-01-28 | XR_ITS ---
3 VIEWS LUMBAR SPINE Ordering provider: Justine Li APRN History: . Z98.1 - Arthrodesis status . Comparison: None. FINDINGS: VERTEBRAL BODIES: No visible fracture or subluxation. Degenerative changes of the spine. Postoperative changes in the lower lumbar area. DISK SPACES: Narrowing of the disc L3-L4. Disc spacer at the level of L4-L5. SOFT TISSUES: 2 Stones in the right kidney area. Atherosclerotic changes of the aorta. IMPRESSION: No acute osseous abnormality lumbar spine. Degenerative disc disease at the level of L2-L3. Postoperative changes in the lower lumbar area. Stones in the right kidney area. Reviewed, dictated and finalized at location A.
--- OUTSIDE RECORDS SUMMARY | 2025-01-28 14:39 | XMS_ITS | Clinical Summary ---
Author Organization [facility] Address [address] [place] [address] Care Team Providers Care Medical Clinic Manager Name Role Phone Chester Hwang MD Primary Care Provider [phone] Source Comments [facility],non-owned Affiliates and Associated Physician Practices is amultiple site organization consisting of ambulatory clinics and hospital sitesin [place], [place], [place] and [place]. This disclosure is being madepursuant to the Care Everywhere program and may not contain all informatio navailable regarding this patient. Last updated 18.[facility] Allergies No known active allergies Medications * Be aware that medications may not be up to date on this document. Alwaysverify current medications with the patient. amlodipine-olmes isabel (JENNY) 5-40 MG tablet Take 1 Tab by mouth once daily. Active hydrocodone-acet aminophen (NORCO) 5-325 MG tablet Take 1 Tab by mouth every 4 hours as needed for Pain. 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 Gender Identity Not on file Sexual Orientation Not on file Last Filed Vital Signs Vital Sign Reading Time Taken Comments Blood Pressure 112/78 06/18/2012 3:48 PM CDT Pulse 74 06/18/2012 3:48 PM CDT Temperature 37.2 C (98.9 F) 06/18/2012 3:15 PM CDT Respiratory Rate 16 06/18/2012 3:48 PM CDT Oxygen Saturation 97% 06/18/2012 3:48 PM CDT Inhaled Oxygen Concentration - - Weight 72.6 kg (160 lb) 06/18/2012 11:56 AM CDT Height 162.6 cm (5' 4) 06/18/2012 11:56 AM CDT Body Mass Index 27.46 06/18/2012 11:56 AM CDT Plan of Treatment Health Maintenance Due Date Last Done Comments COLOGUARD (AGES 45-75) - COL ON CA SCREENING 1964 COLON MONITORING 1964 COLONOSCOPY - COLON CA SCREENING 1964 CT COLONOGRAPHY - COLON CA SCREENING 1964 Colorectal Cancer Screening 1964 FIT - COLON CA SCREENING 1964 FLEX SIG - COLON CA SCREENING 1964 LIPID TESTING 1964 HIV SCREENING 1979 HEPATITIS C SCREENING 03/06/1982 DTAP/TDAP/TD VACCINES (1 - Tdap) 1983 PNEUMOCOCCAL VACCINE 50+ (1 of 1 - PCV) 2014 ZOSTER VACCINE (1 of 2) 2014 COVID-19 VACCINE (1 - 2023-2 5 season) 2024 DEPRESSION SCREENING 08/27/2024 INFLUENZA VACCINE (Season Ended) 2025 Respiratory Syncytial Virus (RSV) Vaccine Pt: or over 60 yrs (1 - 1-dose 75+ series) 2039 HEPATITIS B VACCINE Aged Out No longe r eligible based on patient's age to complete this topic HIB VACCINE Aged Out No longer eligi ble based on patient's age to complete this topic HPV VACCINE Aged Out No longer eligi ble based on patient's age to complete this topic MENINGOCOCCAL (Group B) VACC INE SHARED DECISION-MAKING Aged Out No longer eligibl e based on patient's age to complete this topic MENINGOCOCCAL GROUPS A/C/Y/W VACCINE Aged Out No longer eligible b ased on patient's age to complete this topic Care Teams Medical Clinic Manager Relationship Specialty Start Date End Date Chester Hwang MD [address] [place] [address] [place] [phone] (work) PCP - General 06/07/12
== END 2025-01-28 14:23 | disposition home or self-care (01) ==
PROVIDERS: PCP Physician Assistant Medical; Visit Provider Nurse Practitioner Adult Health
DX: M51.369 Other intervertebral disc degeneration, lumbar region without mention of lumbar back pain or lower extremity pain (principal); Z98.1 Arthrodesis status; N20.0 Calculus of kidney
CPT/HCPCS: 72110

== ENCOUNTER 2025-02-06 08:35 | Emergency (ER) | payer MEDICARE, SELFPAY ==
[2025-02-06] VITALS (24 sets, daily range): BP systolic 103–116; BP diastolic 68–84; PULSE 69–82; RESP 9–114; TEMP 37; O2SAT 96–100
--- NOTE | ~2025-02-06 | CT_ITS ---
EXAMINATION: CT lumbar spine wo con DATE: 02/06/2025 09:10 INDICATION: Left hip pain. TECHNIQUE: Computed tomography (CT) of the lumbar spine was performed without intravenous contrast. T he dose Chapo The dose-length product was 404.15 mGy-cm. COMPARISON: 11/23/2023 FINDINGS: 10 degrees lumbar levocurvature. Sagittal alignment is normal. L4 laminectomy and combined instrument ed L4-L5 anterior and posterior spinal fusion with interbody bone graft cages and bilateral vertical christiano and pedicle screw fixation. Again seen is some incorporated and centrally bridging bone graft at this level. Vertebral body heights are normal. Mild disc height loss at L2-L3 and at L3-L4. Again see n is bilateral nephrolithiasis with stones measuring up to 4 mm in the left. There are small peripher al wedge-shaped regions of increased attenuation in both kidneys which could be due to nephrocalcinos is or if there is been recent contrast administration, retention of contrast related to localized brian al injury in the appropriate clinical setting. Visualized portions of bowels including the appendix a re normal. The following disc levels are specifically discussed: T12-L1: There is mild bilateral facet joint osteoarthritis. There is no neural foraminal stenosis. Th ere is no central canal stenosis. L1-L2: Disc is mildly bulging. There is moderate bilateral facet joint osteoarthritis. There is mild bilateral neural foraminal stenosis. There is mild central canal stenosis. L2-L3: Disc is bulging. There is mild bilateral facet joint osteoarthritis. There is moderate bilater al neural foraminal stenosis. There is mild central canal stenosis. L3-L4: Disc is bulging. There is moderate left and severe right facet joint osteoarthritis. There is moderate right and moderate to severe left neural foraminal stenosis. There is mild central canal cathleen nosis. L4-L5: Anterior and posterior spinal fusion. Posterior decompression with L4 laminectomy with resecti on of the inferior articular processes of L4. There is mild left neural foraminal stenosis. There is no central canal stenosis. L5-S1: Disc is bulging. There is severe bilateral facet joint osteoarthritis. There is mild bilateral neural foraminal stenosis. There is no central canal stenosis. IMPRESSION: 1. Moderate lumbar spondylosis with stable appearance of a combined instrumented L4-L5 anterior and p osterior spinal fusion with posterior decompression. 2. Bilateral nephrolithiasis. 2. Bilateral small region of peripheral increased density in the kidneys which could be due to nephro calcinosis or retention of contrast related to localized renal injury in the setting of recent prior contrast administration. Correlate for history of recent intravenous contrast used. Reviewed, dictated and finalized at location A. IMPRESSION: 1. Moderate lumbar spondylosis with stable appearance of a combined instrumente d L4-L5 anterior and posterior spinal fusion with posterior decompression. 2. Bilateral nephrolithiasis. 2. Bilateral small region of peripheral increased density in the kidneys which could be due to nephrocalcinosis or retention of contrast related to localized renal injury in the setting of recent prior contrast administration. Correlate for history of recent intravenous contrast used.
--- NOTE | ~2025-02-06 | CT_ITS ---
EXAMINATION: CT pelvis wo con DATE: 02/06/2025 09:10 INDICATION: Left hip pain TECHNIQUE: High resolution computed tomography (CT) of the pelvis was performed without intravenous c ontrast. Additional sagittal and coronal reconstructions were performed. The dose Chapo The dose-l ength product was 211.34 mGy-cm. COMPARISON: None FINDINGS: Partially visualized L4 laminectomy and instrumented anterior and posterior spinal fusion at L4-L5. B one alignment is normal. No fracture or suspected osteonecrosis. Mild osteoarthritis at the bilateral hip and sacroiliac joints. No hip joint effusions. Small right fat-containing inguinal hernia. Visua lized portions of the bowels including appendix are normal. No pathologically enlarged pelvic or ingu inal. lymphadenopathy. IMPRESSION: 1. Mild bilateral hip and sacroiliac osteoarthritis. No acute osseous abnormality. 2. L4 laminectomy with combined enhancement at L4-L5 anterior and posterior spinal fusion. 3. Small fat-containing right inguinal hernia. Reviewed, dictated and finalized at location A. IMPRESSION: 1. Mild bilateral hip and sacroiliac osteoarthritis. No acute osseous abnormali ty. 2. L4 laminectomy with combined enhancement at L4-L5 anterior and posterior spi nal fusion. 3. Small fat-containing right inguinal hernia.
--- NOTE | 2025-02-06 08:38 | ECG_ITS ---
Test Date: 2025-02-06 08:46:18 Measurements Intervals [place] Rate: 78 P: 49 MS: 180 QRS: 9 QRSD: 97 T: 26 QT: 392 QTc: 447 Interpretive Statements SINUS RHYTHM INCOMPLETE RIGHT BUNDLE BRANCH BLOCK BORDERLINE ST ABNORMALITY- ANT/INF LEADS BASELINE ARTIFACT- I, II, III, AVR, AVL AVF, V1-V2 BORDERLINE ECG No previous ECG available for comparison Electronically Signed On 02-06-2025 09:28:55 CDT by Andrew Huang D.O.
--- NOTE | 2025-02-06 08:42 | ED_ITS ---
HPI - General Adult General Chief complaint: Extremity Problem,Nontraumatic Stated complaint: L hip pain History of Present Illness HPI narrative: 59-year-old male presents to the emergency department for evaluation for left hip pain. Patient reports hip pain has been bothering him since yesterday. Patient did present to an outside hospital yesterday did have x-rays and CT imaging that were negative. Patient was found to have a low magnesium. Patient states he was discharged home with some muscle relaxants. This morning patient called EMS due to persistent left hip pain and when EMS arrived he was found to be hypotensive. Patient denies any falls or injuries as the underlying cause of his initial hip pain patient denies any falls or injuries today. Patient was treated with a bolus of IV fluids by EMS and upon arrival to emergency department patient's blood pressure was 112/80. Patient denies any associated chest pain or shortness of breath. Patient denies any nausea vomiting or diarrhea. Patient was well-appearing at time of her arrival to the emergency department. Related Data Home Medications ?Medication ?Instructions ?Recorded ?Confirmed ?Last Taken ?Type buprenorphine 2 mg-naloxone 0.5 mg 1 tablet sublingual DAILY 10/26/23 01/28/25 11/19/23 17:00 History sublingual tablet aspirin 81 mg capsule 81 mg PO DAILY 11/13/23 01/28/25 11/13/23 History hydroxyzine HCl 25 mg tablet 25 - 50 mg PO QHS PRN 08/18/24 01/28/25 Unknown History Allergies Allergy/AdvReac Type Severity Reaction Status Date / Time No Known Allergies Allergy Verified 02/06/25 08:39 Review of Systems 2 Review of Systems: All systems reviewed & are unremarkable except as noted in HPI and below PMFSH Past Medical History Medical History Peripheral neuropathy HTN (hypertension), benign Spondylosis of cervical region without myelopathy or radiculopathy Other chronic pain Lumbar radiculopathy, chronic Chronic bilateral low back pain without sciatica Vitamin D deficiency Dyslipidemia Diabetes Spinal stenosis Chronic low back pain Family History Family History Sibling Hypertension Father Family history of Parkinson's disease, Onset Age: 86 Social History Social History Social History: 11/21/24 very confident with medical forms Years smoked: 35 Smoking status: Former smoker Tobacco type: cigarettes Second hand tobacco smoke exposure: No Smoking end date: 06/26/23 Alcohol intake: current Drinks per week: 2 Alcohol use details: 1/MONTH Substance use: never Substance use type: does not use Do You Feel Safe in your Home?: Yes Lack of Transportation: No Lack of Food: Never True Current Housing: I Have Housing Concerned About Future Housing: No Difficulty Paying Gas/Electric Bills: No Difficulty Paying for Meds: No Currently Unemployed: No Education: High School Diploma/GED Difficulty w/ Childcare or Family Care: No Living arrangements: with family Occupation/Education: retired Gender identity (if verbalized by the patient): Male Spiritual care concerns: No Exam 2 Narrative: APPEARANCE: Well appearing, no pain, no distress, well-nourished. HEAD: normocephalic, atraumatic. EYES: PERRLA/EOMI, conjunctivae clear. NOSE: Normal no drainage EARS:TMS clear with good light reflex. THROAT: Pharynx clear, no exudate. NECK: Supple. No adenopathy, no masses. RESPIRATORY: Airway patent, respirations nonlabored. Clear to auscultation bilaterally, no rales, rhonchi, wheezing. CARDIOVASCULAR: Regular rate and rhythm without murmurs rubs or gallops. ABDOMINAL: Soft, nontender, nondistended, normal bowel sounds MUSCULOSKELETAL: Left hip tenderness to palpation NEURO: Alert. Cranial nerves II through XII intact. Good gait. Good coordination SKIN: Warm, dry. Normal Color Course Vital Signs Vital signs: Vital Signs Temperature 98.6 F 02/06/25 08:35 Pulse Rate 81 02/06/25 08:35 Respiratory Rate 16 02/06/25 08:35 Blood Pressure 112/80 02/06/25 08:35 Pulse Oximetry 100 02/06/25 08:35 Oxygen Delivery Room Air 02/06/25 08:35 Temperature 98.6 F 02/06/25 08:35 Pulse Rate 76 02/06/25 11:48 Respiratory Rate 12 02/06/25 11:48 Blood Pressure 116/77 02/06/25 11:31 Pulse Oximetry 97 02/06/25 11:48 Oxygen Delivery Room Air 02/06/25 08:35 Medical Decision Making MDM Narrative Medical decision making narrative: 59-year-old male present to the emergency department for evaluation for left hip strain. Patient describes a muscular tightness of the left hip it felt like muscle spasms. Patient is currently afebrile with no leukocytosis and hemoglobin of 12.1. Patient has an INR 0.9 patient has no acute abnormalities on his CMP with normal magnesium. Patient has a normal TSH of as well. No acute abnormalities on the patient's UA. CT pelvis and lumbar spine were ordered and showed no acute abnormalities. No concern for underlying infection or septic arthritis. No evidence of lumbar or pelvic or hip fracture. Patient did feel improved with [place] and Flexeril. Patient was provided crutches for limited weight-bearing. Differential Diagnosis Differential Diagnosis: Hip fracture, pelvic fracture, lumbar fracture, hip strain, hypomagnesemia, muscles spasm Vital Signs Vital Signs: Vital Signs Temperature 98.6 F 02/06/25 08:35 Pulse Rate 81 02/06/25 08:35 Respiratory Rate 16 02/06/25 08:35 Blood Pressure 112/80 02/06/25 08:35 Pulse Oximetry 100 02/06/25 08:35 Oxygen Delivery Room Air 02/06/25 08:35 Temperature 98.6 F 02/06/25 08:35 Pulse Rate 76 02/06/25 11:48 Respiratory Rate 12 02/06/25 11:48 Blood Pressure 116/77 02/06/25 11:31 Pulse Oximetry 97 02/06/25 11:48 Oxygen Delivery Room Air 02/06/25 08:35 Lab Data Lab results reviewed: Yes I reviewed the patient's lab results. 02/06/25 09:02 02/06/25 09:02 Labs: Lab Results 02/06/25 02/06/25 02/06/25 Range/Units 09:02 09:15 10:04 WBC 9.2 (4.5-10.0) K/mm3 RBC 4.23 L (4.6-6.20) M/mm3 Hgb 12.1 L (14.0-18.0) g/dL Hct 37.2 L (42.0-52.0) % MCV 87.9 (80-100) fl MCH 28.6 (26-34) pg MCHC 32.5 (32-36) g/dl RDW 14.6 H (11.5-14.5) % Plt Count 221 (150-375) k/mm3 MPV 8.6 (7.4-10.4) fl Immature Gran % (Auto) 0.2 (0-0.5) % Neut % (Auto) 58.5 (45.5-73.1) % Lymph % (Auto) 32.1 (18.3-44.2) % [place] % (Auto) 6.8 (2.6-8.5) % Eos % (Auto) 2.1 (0-4.4) % Baso % (Auto) 0.3 (0.2-1.2) % Lymph # (Auto) 2.96 (0.9-3.2) K/mm3 [place] # (Auto) 0.6 (0.1-0.6) K/mm3 Eos # (Auto) 0.2 (0-0.3) K/mm3 Baso # (Auto) 0.0 (0.0-0.1) K/mm3 Abs Immat Gran (auto) 0.02 (0.00-0.031) K/mm3 Absolute Neuts (auto) 5.4 (1.3-6.7) K/mm3 Absolute Nucleated RBC 0.000 (0.0-0.012) K/mm3 Nucleated RBC % 0.0 (0.0-0.2) % PT 12.6 (11.1-14.7) Seconds INR 0.9 APTT 26.7 (22.3-36.8) Seconds Sodium 137 (137-145) mmol/L Potassium 3.4 (3.4-5.0) mmol/L Chloride 103 (98-107) mmol/L Carbon Dioxide 27 (22-30) mmol/L Anion Gap 7 (4-12) mmol/L BUN 9 (9-20) mg/dL Creatinine 0.69 L (0.7-1.3) mg/dL Estim Creat Clear Calc 82 ml/min Estimated GFR > 60 (59 - ) Glucose 156 H (65-110) mg/dL POC Capillary Glucose 149 H (65-105) mg/dl Calcium 8.5 (8.4-10.2) mg/dL Magnesium 1.6 (1.6-2.3) mg/dL Total Bilirubin 0.2 (0.2-1.3) mg/dL AST 29 (17-59) U/L ALT 32 (6-50) U/L Alkaline Phosphatase 53 (38-126) U/L Total Protein 6.0 L (6.3-8.2) g/dL Albumin 3.4 L (3.5-5.1) g/dL TSH (Reflex) 2.360 (0.465-4.68) uIU/mL Urine Color Yellow (Yellow) Urine Appearance Clear (Clear) Urine pH 6.5 (5.0-9.0) Ur Specific Evans 1.020 (1.001-1.035) Urine Protein Negative (Negative) mg/dL Urine Glucose (UA) Negative (Negative) mg/dL Urine Ketones Negative (Negative) mg/dL Ur Blood (Man) Negative (Negative) Urine Nitrate Negative (Negative) Urine Bilirubin Negative (Negative) Urine Urobilinogen 0.2 (<2.0) mg/dL Leukocyte Esterase Rfl Negative (Negative) TERRA/UL Urine RBC 0-2 (0-2) /hpf Urine WBC 0-5 (0-3) /hpf Ur Squamous Epith Cells None seen (Few) /hpf Urine Bacteria None seen /hpf Urine Casts 0-2 Imaging Data Radiologist's impression: Impressions Lumbar Spine CT 02/06/25 09:51 IMPRESSION: 1. Moderate lumbar spondylosis with stable appearance of a combined instrumented L4-L5 anterior and posterior spinal fusion with posterior decompression. 2. Bilateral nephrolithiasis. 2. Bilateral small region of peripheral increased density in the kidneys which could be due to nephrocalcinosis or retention of contrast related to localized renal injury in the setting of recent prior contrast administration. Correlate for history of recent intravenous contrast used. Pelvis CT 02/06/25 10:44 IMPRESSION: 1. Mild bilateral hip and sacroiliac osteoarthritis. No acute osseous abnormality. 2. L4 laminectomy with combined enhancement at L4-L5 anterior and posterior spinal fusion. 3. Small fat-containing right inguinal hernia. Discharge Plan Discharge Clinical Impression: Acute pain of left hip Patient Disposition: Home Condition: Stable Instructions: Antibiotic Form, Crutch Instructions (ED), Hip Pain (ED) Additional Instructions: Ibuprofen for pain control. [place] as needed for additional pain control. Flexeril for muscle spasm. Crutches for limited weight-bearing. Have close follow-up with Orthopedics. If you have any worsening symptoms then please call or return to the emergency department. Patient Language: Macedonian Prescriptions: New hydrocodone-acetaminophen 5-325 mg tablet 1 tablet PO Q12H PRN (Reason: pain) 7 Days Qty: 14 0RF cyclobenzaprine 10 mg tablet 10 mg PO BID PRN (Reason: muscle spasm) Qty: 14 0RF No Action hydroxyzine HCl 25 mg tablet 25 - 50 mg PO QHS PRN methylprednisolone [Medrol (Solomon)] 4 mg tablets,dose pack See Rx Instructions PO PER PKG DIR Qty: 21 0RF Rx Instructions: PO PER PKG DIR for 6 days meloxicam 15 mg tablet 15 mg PO DAILY Qty: 15 0RF buprenorphine-naloxone 2-0.5 mg tablet, sublingual 1 tablet sublingual DAILY aspirin 81 mg Capsule 81 mg PO DAILY (DME) blood sugar diagnostic Strip See Rx Instructions .Route Qty: 100 0RF Rx Instructions: test blood sugar daily as directed meloxicam 7.5 mg tablet 7.5 mg PO DAILY Qty: 90 1RF duloxetine 60 mg capsule,delayed release(DR/EC) 60 mg PO DAILY Qty: 90 1RF atorvastatin 20 mg tablet 20 mg PO QHS Qty: 90 1RF pen needle, diabetic [BD Ultra-Fine Nelly Pen Needle] 32 gauge x 5/32 needle 1 ea miscellaneous .Q.week Qty: 100 0RF Rx Instructions: To use once weekly with Ozempic injections metformin 500 mg tablet extended release 24 hr 1,000 mg PO BID Qty: 360 0RF semaglutide 1 mg/dose (4 mg/3 mL) pen injector 1 mg subcut WEEKLY Qty: 3 1RF duloxetine 30 mg capsule,delayed release(DR/EC) 30 mg PO DAILY Qty: 90 0RF amlodipine-benazepril 5-10 mg capsule 1 cap PO DAILY Qty: 90 0RF Follow-up/Referrals: Altagracia Lovelace PA-C [Primary Care Provider] -
--- OUTSIDE RECORDS SUMMARY | 2025-02-06 08:56 | XMS_ITS | Patient Health Record ---
Author Organization [facility] Address [address] [place] [address] Care Team Providers Care Maintenance Shop Welder Name Role Phone Sid Yañez Primary Care Provider Allergies No Known Allergies Results Component Value Reference Range Notes 12 Panel Urine Drug Screen Reviewed date:07/03/2024 03:44:02 PM Interpretation: Performing Lab: Notes/Report: THC neg [place] neg MOP (OPI) neg AMP neg MET neg BAR neg BZO neg MDMA neg MTD neg OXY neg PCP neg BUP POS 12 Panel Urine Drug Screen Reviewed date:03/26/2024 03:18:09 PM Interpretation: Performing Lab: Notes/Report: THC neg [place] neg MOP (OPI) neg AMP neg MET neg BAR neg BZO neg MDMA neg MTD neg OXY neg PCP neg BUP POS 12 Panel Urine Drug Screen Reviewed date:11/26/2024 01:36:00 PM Interpretation: Performing Lab: Notes/Report: THC POS [place] neg MOP (OPI) neg AMP neg MET neg BAR neg BZO neg MDMA neg MTD neg OXY neg PCP neg BUP POS Reason For Referral No Information Medications Medication SIG (Take, Route, Frequency, Duration) Notes Start Date End Date Status Buprenorphine HCl-Naloxone HCl 2-0.5 MG 1 tablet under the tongue and allow to dissolve Sublingual Three times daily 12/31/2024 Active DULoxetine HCl 30 MG Oral for 90 Days Active amLODIPine Besy-Benazepril HCl 5-10 MG Oral for 90 Days Active Ozempic Active hydrOXYzine HCl 25 MG 1-2 tablet as need ed Orally at bedtime for 30 days Active Meloxicam 7.5 MG 1 tablet Orally Once a day Active Atorvastatin Calcium 20 MG 1 tablet Oral ly Once a day Active Vitamin D Active Aspirin 81 MG 1 capsule Orally Onc e a day Active metFORMIN HCl ER 500 MG 2 tablets with e vening meal Orally Twice a day Active Social History Tobacco Use: Social History Observation Description Date Details (start date - stop date) Former Smoker NA - NA Sex Assigned At : Social History Observation Description Sex Assigned At Male Dont use, Tobacco Use/Smoking Question Answer Notes Are you a Uses tobacco in other forms Additional Findings: Tobacco User e-Cigarette Tobacco Control (Standard) Question Answer Notes Tobacco use: Former smoker How long has it been since you last smoked? 1-5 years Problems Problem Type SNOMED Code ICD Code Onset Dates Problem Status W/U Status Risk Notes Problem Insomnia (585877495) Insomnia (G47.00) Active confirmed Problem Overweight (813580933) Over weight (E66.3) Active confirmed Problem Tobacco use (426948110) Tobacco use disorder (F17.200) Active confirmed Problem Opioid use disorder (8897983833) Opioid use disorder (F11.90) Active confirmed Vital Signs Heart Rate 97 /min 11/26/2024 Temperature 98.7 degrees Fahrenheit 11/26/2024 Respiratory Rate 16 /min 11/26/2024 Blood pressure diastolic 80 mm Hg 11/26/2024 Oximetry 98 % 11/26/2024 Height 64 in 11/26/2024 Blood pressure systolic 118 mm Hg 11/26/2024 Weight 161.6 lbs 11/26/2024 BMI 27.74 kg/m2 11/26/2024 Encounters Encounter Location Date Provider Diagnosis [facility] [place] [place] [address] 03/26/2024 Sid Yañez Opioid use disorder F11.90 ; Overweight (BMI 25.0-29.9) E66.3 ; Tobacco use disorder F17.200 and Insomnia G47.00 [facility] [address] [place] [address] 04/22/2024 Jenkerry Yañez Opioid use disorder F11.90 [facility] [address] [place] [address] 07/03/2024 Sid Yañez Opioid use disorder F11.90 ; Overweight (BMI 25.0-29.9) E66.3 ; Insomnia G47.00 and Nutritional counseling Z71.3 [facility] [place] [place] [address] 07/31/2024 Sid Yañez Opioid use disorder F11.90 and Insomnia G47.00 [facility] [place] [address] 11/26/2024 Sid Yañez Opioid use disorder F11.90 ; Over weight E66.3 and Insomnia G47.00 [facility] [address] [place] [address] 12/31/2024 Sid Yañez Opioid use disorder F11.90 [facility] [address] [place] [address] 12/31/2024 Sid Yañez Assessments Encounter Date Diagnosis (ICD Code) Assessment Notes Treatment Notes Treatment Clinical Notes Section Notes 03/26/2024 Overweight (BMI 25.0-29.9) (ICD-10 - E66.3) 03/26/2024 Opioid use disorder (ICD-10 - F11.90) 04/22/2024 Opioid use disorder (ICD-10 - F11.90) 07/03/2024 Overweight (BMI 25.0-29.9) (ICD-10 - E66.3) 07/03/2024 Opioid use disorder (ICD-10 - F11.90) 07/31/2024 Opioid use disorder (ICD-10 - F11.90) 11/26/2024 Opioid use disorder (ICD-10 - F11.90) 12/31/2024 Opioid use disorder (ICD-10 - F11.90) 11/26/2024 Over weight (ICD-10 - E66.3) 07/31/2024 Insomnia (ICD-10 - G47.00) 07/03/2024 Insomnia (ICD-10 - G47.00) 03/26/2024 Tobacco use disorder (ICD-10 - F17.200) 03/26/2024 Insomnia (ICD-10 - G47.00) 11/26/2024 Insomnia (ICD-10 - G47.00) 07/03/2024 Nutritional counseling (ICD-10 - Z71.3) 03/26/2024 Other Discussed medication side effects, adverse effects, risks, benefits, as well as interactions. Encouraged non-use of opioids. Has naloxone. Recommended participation in recovery groups/counseling services. Agrees to contact office with questions or concerns. 04/22/2024 Other Patient agrees to take medication as prescribed. Discussed medication side effects, adverse effects, risks, benefits, as well as interactions. Encouraged non-use of opioids. Has naloxone. Recommended participation in recovery groups and/or counseling services. May contact office with questions or concerns. 07/03/2024 Other Patient agrees to take medication as prescribed. Discussed medication side effects, adverse effects, risks, benefits, as well as interactions. Encouraged non-use of opioids. Has naloxone. Recommended participation in recovery groups and/or counseling services. May contact office with questions or concerns. 07/31/2024 Other Patient agrees to take medication as prescribed. Discussed medication side effects, adverse effects, risks, benefits, as well as interactions. Encouraged non-use of opioids. Has naloxone. Recommended participation in recovery groups and/or counseling services. May contact office with questions or concerns. 11/26/2024 Other Patient agrees to take medication as prescribed. Discussed medication side effects, adverse effects, risks, benefits, as well as interactions. Encouraged non-use of opioids. Has naloxone. Recommended participation in recovery groups and/or counseling services. May contact office with questions or concerns. Patient may self-administer their own medications or may self-administer their own oral medications per [place] Protocol. 12/31/2024 Other Discussed medication side effects, adverse effects, risks, benefits, as well as interactions. Encouraged non-use of opioids. Has naloxone. Recommended participation in recovery groups and/or counseling services. May contact office with questions or concerns. Patient may self-administer their own medications or may self-administer their own oral medications per [place] Protocol. Plan Of Treatment No Information Insurance Providers Payer Name Payer Address Payer Phone Subscriber Number Group Number Insured Name Patient Relationship to Insured Coverage Start Date Coverage End Date [facility] [address] [address] [place] [address] [id number] Marcio Gomez Self - patient is the insured 3 Medical (General) History Medical History History ICD Code Diabetes Type 2 Surgical History Surgery Date(Month/Year) Carpal tunnel Face cancer Trigger finger Vasectomy back surgery 11/2023 Hospitalization History Reason Date(Month/Year)
--- OUTSIDE RECORDS SUMMARY | 2025-02-06 08:56 | XMS_ITS | Clinical Summary ---
Author Organization [facility] Address [address] [place] [address] Care Team Providers Care Trolley Operator Name Role Phone Chester Hwang MD Primary Care Provider [phone] Source Comments [facility],non-owned Affiliates and Associated Physician Practices is amultiple site organization consisting of ambulatory clinics and hospital sitesin [place], [place], [place]. This disclosure is being madepursuant to the Care Everywhere program and may not contain all informatio navailable regarding this patient. 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
[2025-02-06 09:09] LABS: Basophils Percent Auto 0.3 % (0.2-1.2); Eosinophils Absolute Auto 0.2 K/mm3 (0-0.3); Eosinophils Percent Auto 2.1 % (0-4.4); Hematocrit 37.2 % (42.0-52.0); Hemoglobin 12.1 g/dL (14.0-18.0); Immature Granulocyte Absolute 0.02 K/mm3 (0.00-0.031); Immature Granulocyte Percent A 0.2 % (0-0.5); Lymphocytes Absolute Auto 2.96 K/mm3 (0.9-3.2); Lymphocytes Percent Auto 32.1 % (18.3-44.2); Mean Corpuscular HGB Conc 32.5 g/dl (32-36); Mean Corpuscular Hemoglobin 28.6 pg (26-34); Mean Corpuscular Volume 87.9 fl (80-100); Mean Platelet Volume 8.6 fl (7.4-10.4); Monocytes Absolute Auto 0.6 K/mm3 (0.1-0.6); Monocytes Percent Auto 6.8 % (2.6-8.5); Neutrophils Absolute Auto 5.4 K/mm3 (1.3-6.7); Neutrophils Percent Auto 58.5 % (45.5-73.1); Platelet Count Result 221 k/mm3 (150-375); Red Blood Count 4.23 M/mm3 (4.6-6.20); Red Cell Distribution Width 14.6 % (11.5-14.5); White Blood Count 9.2 K/mm3 (4.5-10.0)
[2025-02-06 09:17] LABS: Glucose Point of Care 149 mg/dl (65-105)
[2025-02-06 09:20] LABS: INR 0.9; Partial Thromboplastin Time 26.7 Seconds (22.3-36.8); Prothrombin Time 12.6 Seconds (11.1-14.7)
[2025-02-06 09:24] LABS: Alanine Aminotransferase 32 U/L (6-50); Albumin Level 3.4 g/dL (3.5-5.1); Alkaline Phosphatase 53 U/L (38-126); Anion Gap 7 mmol/L (4-12); Aspartate Amino Transferase 29 U/L (17-59); Bilirubin,Total 0.2 mg/dL (0.2-1.3); Blood Urea Nitrogen 9 mg/dL (9-20); Calcium 8.5 mg/dL (8.4-10.2); Carbon Dioxide 27 mmol/L (22-30); Chloride 103 mmol/L (98-107); Estimated CRCL calculation 82 ml/min; Estimated Glomerular Filt Rate > 60; Glucose 156 mg/dL (65-110); Magnesium 1.6 mg/dL (1.6-2.3); Potassium 3.4 mmol/L (3.4-5.0); Sodium 137 mmol/L (137-145)
[2025-02-06 10:19] LABS: Bacteria Urine None Seen /hpf; Non Pathogenic Casts 0-2; RBC Urine 0-2 /hpf (0-2); Squamous Epithelial Cell Urine None Seen /hpf (Few); WBC Urine 0-5 /hpf (0-3)
[2025-02-06 10:22] LABS: Add Urine Microscopic? NO; Appearance Urine Clear (Clear); Blood Urine Negative (Negative); Color Urine Yellow (Yellow); Glucose Urine UA Negative (Negative); Ketones Urine Negative (Negative); Protein Urine Negative (Negative); pH Urine 6.5 (5.0-9.0)
[2025-02-06 10:23] LABS: Bilirubin Urine Negative (Negative); Leukocyte Esterase Ur Negative LEU/UL (Negative); Nitrate Urine Negative (Negative); Urobilinogen Urine 0.2 mg/dL (<2.0)
--- NOTE | 2025-02-06 11:17 | PC.NURSE ---
patient unable to bear weight. Can not stand up.
--- NOTE | 2025-02-06 11:27 | PC.NURSE ---
Bedside report received from Octavia STOUT
[2025-02-06] MEDS: CYCLOBENZAPRINE HCL 10 MG TABLET PO (11:36)
[2025-02-06] MEDS: HYDROcodone/acetaminophen (*CRX) 5-325 MG TABLET 1 TAB PO (11:37)
== END 2025-02-06 12:48 | disposition home or self-care (01) ==
PROVIDERS: Emergency Provider Emergency Medicine; PCP Physician Assistant Medical
DX: M25.552 Pain in left hip (principal); I10 Essential (primary) hypertension; E11.42 Type 2 diabetes mellitus with diabetic polyneuropathy; E55.9 Vitamin D deficiency, unspecified; E78.5 Hyperlipidemia, unspecified; Z98.1 Arthrodesis status; Z87.891 Personal history of nicotine dependence; M47.816 Spondylosis without myelopathy or radiculopathy, lumbar region; M16.0 Bilateral primary osteoarthritis of hip; M46.1 Sacroiliitis, not elsewhere classified; K40.90 Unilateral inguinal hernia, without obstruction or gangrene, not specified as recurrent; N20.0 Calculus of kidney; Z79.82 Long term (current) use of aspirin; Z79.899 Other long term (current) drug therapy; Z79.84 Long term (current) use of oral hypoglycemic drugs; Z79.85 Long-term (current) use of injectable non-insulin antidiabetic drugs; I45.10 Unspecified right bundle-branch block; R94.31 Abnormal electrocardiogram [ECG] [EKG]
CPT/HCPCS: 36415; 72131; 72192; 80053; 81003; 82948; 83735; 84443; 85025; 85610; 85730; 93005; 99284; A9270

== ENCOUNTER 2025-06-01 07:59 | Outpatient (CLI) | payer MEDICARE, SELFPAY ==
--- OUTSIDE RECORDS SUMMARY | 2025-02-17 09:00 | XMS_ITS ---
Author Organization [facility] Address [address] [place] [address] Care Team Providers Care Cooker Mechanic Name Role Phone Sid Yañez Primary Care Provider REASON FOR VISIT MAT F/U Social History Sex Assigned At : Social History Observation Description Sex Assigned At Male Encounters Encounter Location Date Provider Diagnosis [address] [place] [address] 02/17/2025 Sid Yañez Plan Of Treatment No Information Progress Notes * Marcio WETZELDOB: 4 (60 yo M)Acc No.[id number]:02/17/2025 UNLOCKED PROGRESS NOTE Patient: Marcio WILLINGHAM Provider: ION Galvan, HOT SAW HELPER, CLOTH TRIMMER HAND-C :1965 A ge:59 Y S ex:Male Date:02/17/2025 Address:[address] Subjective: * Chief Complaints: * 1 . MAT F/U. * Medical History: Objective: * Vitals: Assessment: Plan: * Treatment: * Care Plan Details* * Electronic signature of Marianne Yañez APRN, [id number] on 06/01/2025 at 08:09 AM CDT Sign off status: Pending * Provider: Pascual Yañez MSN, HOT SAW HELPER, CLOTH TRIMMER HAND-C Date: 02/17/2025 Generated for Brennon villatoro/Darwin/Ivelisse on: 1 08:09 AM CDT
--- OUTSIDE RECORDS SUMMARY | 2025-02-20 09:00 | XMS_ITS ---
Author Organization [facility] Address [address] [place] [address] Care Team Providers Care Lead Installer Name Role Phone Sid Yañez Primary Care Provider REASON FOR VISIT MAT F/U Social History Sex Assigned At : Social History Observation Description Sex Assigned At Male Encounters Encounter Location Date Provider Diagnosis [address] [place] [address] 02/20/2025 Sid Yañez Plan Of Treatment No Information Progress Notes * Marcio WETZELDOB: 4 (60 yo M)Acc No.[id number]:02/20/2025 UNLOCKED PROGRESS NOTE Patient: Marcio WILLINGHAM Provider: ION Galvan, WINDSMITH, ARTIST BLACKSMITH-C :1965 A ge:59 Y S ex:Male Date:02/20/2025 Address:[address] [facility] [address] Subjective: * Chief Complaints: * 1 . MAT F/U. * Medical History: Objective: * Vitals: Assessment: Plan: * Treatment: * Care Plan Details* * Electronic signature of Marianne Yañez APRN, [id number] on 06/01/2025 at 08:09 AM CDT Sign off status: Pending * Provider: Pascual Yañez MSN, WINDSMITH, ARTIST BLACKSMITH-C Date: 0 02/20/2025 Generated for Brennon villatoro/Darwin/Ivelisse on: 1 08:09 AM CDT
--- OUTSIDE RECORDS SUMMARY | 2025-04-29 09:40 | XMS_ITS ---
Author Organization [facility] Address [address] [place] [address] Care Team Providers Care Foreign Broadcast Specialist Name Role Phone Sid Yañez Primary Care Provider REASON FOR VISIT med refill Social History Sex Assigned At : Social History Observation Description Sex Assigned At Male Encounters Encounter Location Date Provider Diagnosis [address] [place] [address] 04/29/2025 Sid Yañez Plan Of Treatment No Information Progress Notes * Marcio WETZELDOB: 4 (60 yo M)Acc No.[id number]:04/29/2025 UNLOCKED PROGRESS NOTE Patient: Marcio WILLINGHAM Provider: ION Galvan, RESEARCH ASSOCIATE POLICY, ASSEMBLER SHOW MOTOR-C :1965 A ge:60 Y S ex:Male Date:04/29/2025 Address:[address] [facility] [address] Subjective: * Chief Complaints: * 1 . Med refill. * Medical History: Objective: * Vitals: Assessment: Plan: * Treatment: * Care Plan Details* * Electronic signature of Marianne Yañez APRN, [id number] on 06/01/2025 at 08:08 AM CDT Sign off status: Pending * Provider: Pascual Yañez MSN, RESEARCH ASSOCIATE POLICY, ASSEMBLER SHOW MOTOR-C Date: 0 04/29/2025 Generated for Printi ng/Darwin/Ivelisse on: 1 08:08 AM CDT
--- NOTE | ~2025-06-01 | US_ITS ---
Examination: Ultrasound of the retroperitoneum including kidneys and bladder. Clinical History: URETERAL CALCULUS . Comparison: None available. Findings: Right kidney: 11 cm. Normal echogenicity. No collecting system dilatation. No shadowing calculi. Left kidney: 11 cm. Normal echogenicity. No collecting system dilatation. No shadowing calculi. 16 mm cyst. Urinary bladder: Mild wall thickening but under distended. Hepatic steatosis. IMPRESSION: 1. No acute findings. Reviewed, dictated and finalized at location R. IMPRESSION: 1. No acute findings.
--- OUTSIDE RECORDS SUMMARY | 2025-06-01 08:09 | XMS_ITS | Patient Health Record ---
[facility] Organization [facility] Address [address] [place] [address] Care Team Providers Care Pizza Chef Name Role Phone Sid Yañez Primary Care Provider ReynaldoImani Unavailable Allergies No Known Allergies Results Component Value Reference Range Notes 14 Panel Urine Drug Screen Reviewed date:05/19/2025 03:50:50 PM Interpretation: Performing Lab: Notes/Report: THC neg [place] neg MOP (OPI) neg AMP neg MET neg BAR neg BZO neg MDMA neg MTD neg OXY neg PCP neg BUP pos TCA neg FTY neg 12 Panel Urine Drug Screen Reviewed date:11/26/2024 01:36:00 PM Interpretation: Performing Lab: Notes/Report: THC POS [place] neg MOP (OPI) neg AMP neg MET neg BAR neg BZO neg MDMA neg MTD neg OXY neg PCP neg BUP POS 12 Panel Urine Drug Screen Reviewed date:07/03/2024 03:44:02 PM Interpretation: Performing Lab: Notes/Report: THC neg [place] neg MOP (OPI) neg AMP neg MET neg BAR neg BZO neg MDMA neg MTD neg OXY neg PCP neg BUP POS Reason For Referral No Information Medications Medication SIG (Take, Route, Frequency, Duration) Notes Start Date End Date Status metFORMIN HCl ER 500 MG 2 tablets with e vening meal Orally Twice a day Active Buprenorphine HCl-Naloxone HCl 2-0.5 MG 1 tablet under the tongue and allow to dissolve Sublingual Three times daily 05/19/2025 Active DULoxetine HCl 30 MG Oral; Duration: 90 Days Active amLODIPine Besy-Benazepril HCl 5-10 MG Oral; Duration: 90 Days Acti ve hydrOXYzine HCl 25 MG 1-2 tablet as need ed Orally at bedtime; Duration: 30 days Active Atorvastatin Calcium 20 MG 1 tablet Oral ly Once a day Active traZODone HCl 50 MG 1 tablet at bedtime as needed Orally at bedtime; Duration: 90 days Active Vitamin D Active Aspirin 81 MG 1 capsule Orally Onc e a day Active Social History Tobacco Use: Social History Observation Description Date Details (start date - stop date) Current some da y smoker NA - NA Sex Assigned At : Social History Observation Description Sex Assigned At Male Tobacco Control (Standard) Question Answer Notes Tobacco use: Current some day smoker How long has it been since y ou last smoked? 1-5 years Additional Findings: Tobacco user Light cigarett e smoker (1-9 cigs/day) Additional Findings: Tobacco non-user Aggressive nonsmoker Problems Problem Type SNOMED Code ICD Code Onset Dates Problem Status W/U Status Risk Notes Problem Insomnia (324331204) Insomnia (G47.00) Active confirmed Problem Overweight (797241899) Over weight (E66.3) Active confirmed Problem Tobacco use (523958126) Tobacco use disorder (F17.200) Active confirmed Problem Opioid use disorder (9125733793) Opioid use disorder (F11.90) Active confirmed Vital Signs Heart Rate 102 /min 05/19/2025 Temperature 98.7 degrees Fahrenheit 11/26/2024 Respiratory Rate 16 /min 05/19/2025 Blood pressure diastolic 74 mm Hg 05/19/2025 Oximetry 98 % 05/19/2025 Height 64 in 05/19/2025 Blood pressure systolic 118 mm Hg 05/19/2025 Weight 160.2 lbs 05/19/2025 BMI 27.5 kg/m2 05/19/2025 Encounters Encounter Location Date Provider Diagnosis [facility] [address] [place] [address] 07/03/2024 Jenia Otilio Opioid use disorder F11.90 ; Overweight (BMI 25.0-29.9) E66.3 ; Insomnia G47.00 and Nutritional counseling Z71.3 [facility] [address] [place] [address] 07/31/2024 Jenia Hemark Opioid use disorder F11.90 and Insomnia G47.00 [facility] [address] [place] [address] 11/26/2024 Jenia Teresomark Opioid use disorder F11.90 ; Over weight E66.3 and Insomnia G47.00 [facility] [address] [place] [address] 12/31/2024 Sid Yañez Opioid use disorder F11.90 [facility] [address] [place] [address] 05/19/2025 Jenia Otilio Opioid use disorder F11.90 ; Over weight E66.3 ; Tobacco use disorder F17.200 and Insomnia G47.00 [facility] [address] [place] [address] 12/31/2024 [facility] [place] [address] [place] [address] 02/17/2025 Sid mark [place] [address] [facility] [place] [address] 02/17/2025 [facility] [address] [place] [address] 03/09/2025 Imani Jacobs Assessments Encounter Date Diagnosis (ICD Code) Assessment Notes Treatment Notes Treatment Clinical Notes Section Notes 05/19/2025 Over weight (ICD-10 - E66.3) 05/19/2025 Opioid use disorder (ICD-10 - F11.90) 12/31/2024 Opioid use disorder (ICD-10 - F11.90) 11/26/2024 Opioid use disorder (ICD-10 - F11.90) 07/31/2024 Opioid use disorder (ICD-10 - F11.90) 07/03/2024 Overweight (BMI 25.0-29.9) (ICD-10 - E66.3) 07/03/2024 Opioid use disorder (ICD-10 - F11.90) 07/03/2024 Insomnia (ICD-10 - G47.00) 07/31/2024 Insomnia (ICD-10 - G47.00) 05/19/2025 Tobacco use disorder (ICD-10 - F17.200) 11/26/2024 Over weight (ICD-10 - E66.3) 05/19/2025 Insomnia (ICD-10 - G47.00) 11/26/2024 Insomnia (ICD-10 - G47.00) 07/03/2024 Nutritional counseling (ICD-10 - Z71.3) 07/03/2024 Other Patient agrees to take medication [...] may self-administer their own oral medications per [facility] Protocol. 12/31/2024 Other Discussed medication side effects, adverse effects, risks, benefits, as well as interactions. Encouraged non-use of opioids. Has naloxone. Recommended participation in recovery groups and/or counseling services. May contact office with questions or concerns. Patient may self-administer their own medications or may self-administer their own oral medications per [facility] Protocol. 05/19/2025 Other Discussed medication side effects, adverse effects, risks, benefits, as well as interactions. Encouraged non-use of opioids. Has naloxone. Recommended participation in recovery groups and/or counseling services. May contact office with questions or concerns. Patient may self-administer their own medications or may self-administer their own oral medications per [facility] Protocol. Plan Of Treatment No Information Insurance Providers Payer Name Payer Address Payer Phone Subscriber Number Group Number Insured Name Patient Relationship to Insured Coverage Start Date Coverage End Date [facility] [address] [address] [place] [address] [id number] Marcio Gomez Self - patient is the insured 3 Medical (General) History Medical History History ICD Code Diabetes Type 2 Surgical History Surgery Date(Month/Year) Carpal tunnel Face cancer Trigger finger Vasectomy back surgery 11/2023 2 kidney stents 02/2025 Hospitalization History Reason Date(Month/Year) Septic, GI bleed - [facility]
--- OUTSIDE RECORDS SUMMARY | 2025-06-01 08:09 | XMS_ITS | Clinical Summary ---
Author Organization [facility] Address [address] [place] [address] Care Team Providers Care Nurse Informatics Educator Name Role Phone Chester Hwang MD Primary Care Provider [phone] Source Comments [facility],non-owned Affiliates and Associated Physician Practices is amultiple site organization consisting of ambulatory clinics and hospital sitesin [place], [place], [place] and [place]. This disclosure is being madepursuant to the Care Everywhere program and may not contain all informatio navailable regarding this patient. 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
== END 2025-06-01 08:00 | disposition home or self-care (01) ==
PROVIDERS: PCP Physician Assistant Medical; Visit Provider Urology
DX: N20.1 Calculus of ureter (principal)
CPT/HCPCS: 76770